=== PATIENT | female | born 1955 | race Caucasian/White ===

== ENCOUNTER 2019-12-26 14:19 | Observation (INO) ==
[2019-12-26 16:57] LABS: Basophils # 0.1 K/mcL (0.0-0.2); Basophils % 0.5 %; Eosinophils # 0.2 K/mcL (0.0-0.6); Eosinophils % 2.1 %; Hematocrit 44.3 % (35.3-44.9); Hemoglobin 14.3 g/dL (11.5-15.4); Immature Granulocytes % 0.5 % (0-4); Lymphocytes # 1.7 K/mcL (0.6-4.6); Lymphocytes % 16.5 %; Mean Corpuscular HGB Conc 32.3 g/dL (31.6-35.5); Mean Corpuscular Hemoglobin 27.7 pg (28.0-33.3); Mean Corpuscular Volume 85.9 fL (83.0-100.0); Mean Platelet Volume 10.5 fL (9.4-12.4); Monocytes # 0.6 K/mcL (0.0-1.3); Monocytes % 5.8 %; Neutrophils # 7.7 K/mcL (1.6-8.9); Platelet Count 254 K/mcL (140-400); Red Blood Count 5.16 M/mcL (3.82-4.97); Red Cell Distribution Width 15.5 % (11.5-14.5); Segmented Neutrophils % 74.6 %; White Blood Count 10.3 K/mcL (4.3-11.1)
[2019-12-26 17:15] LABS: BUN/Creatinine Ratio 15 (6-26); Blood Urea Nitrogen 9 mg/dL (8-23); Calcium 9.3 mg/dL (8.6-10.3); Carbon Dioxide 26 mEq/L (23-29); Chloride 100 mEq/L (98-107); Glucose 276 mg/dL (70-105); Osmolality,Calculated 289 (280-300); Potassium 3.8 mEq/L (3.5-5.1); Sodium 135 mEq/L (136-145); eGFR For African Americans > 60 (> 60); eGFR For Non-African Americans > 60 (> 60)
[2019-12-26 17:21] LABS: Prothrombin Time 11.4 Seconds (9.4-12.1)
[2019-12-26] MEDS ORDERED: Ondansetron 4 MG/2 ML VIAL IVP PRN (17:22)
[2019-12-26] MEDS ORDERED: Naloxone 0.4 MG/ML INJ IVP PRN (17:22)
[2019-12-26 17:24] LABS: Activated Partial Thrombo Time 29.5 Seconds (26.0-36.0)
[2019-12-26] MEDS ORDERED: Dextrose Gel 15 GM/37.5 ML TUBE PO PRN ×2 (17:51)
[2019-12-26] MEDS ORDERED: D5% in Water 1,000 ML IVC PRN (17:51)
[2019-12-26] MEDS ORDERED: *HR* Dextrose 50 % in Water (Vial) 50 ML VIAL IVP PRN (17:51)
[2019-12-26 19:40] LABS: Estimated Average Glucose 258 mg/dl
[2019-12-26] MEDS: *HR* Heparin 5,000 UNIT/ML VIAL SQ SCH (20:34)
[2019-12-26] MEDS: *HR* OxyCODONE/APAP 5/325 TABLET PO PRN (20:38)
[2019-12-26] MEDS: Gabapentin 400 MG CAPSULE PO SCH (22:42)
[2019-12-26] MEDS: Insulin DETEMIR 100 UNIT/ML X5UNITS SQ SCH (22:42)
[2019-12-26] MEDS: Insulin LISPRO 300 UNITS/3 ML VIAL SQ SCH (22:42)
[2019-12-26] MEDS: Melatonin 3 MG TABLET PO SCH (22:42)
[2019-12-26] MEDS: Sennosides/Docusate Sodium TABLET PO SCH (23:30)
[2019-12-26] MEDS ORDERED: *HR* OxyCODONE Immed Rel 5 MG TABLET PO ONE (23:54)
[2019-12-27 05:04] LABS: Basophils # 0.1 K/mcL (0.0-0.2); Basophils % 0.6 %; Eosinophils # 0.3 K/mcL (0.0-0.6); Hemoglobin 13.3 g/dL (11.5-15.4); Immature Granulocytes % 0.3 % (0-4); Lymphocytes # 2.5 K/mcL (0.6-4.6); Lymphocytes % 25.2 %; Mean Corpuscular HGB Conc 31.7 g/dL (31.6-35.5); Mean Corpuscular Hemoglobin 27.7 pg (28.0-33.3); Mean Corpuscular Volume 87.3 fL (83.0-100.0); Mean Platelet Volume 10.7 fL (9.4-12.4); Monocytes # 0.7 K/mcL (0.0-1.3); Monocytes % 7.3 %; Neutrophils # 6.4 K/mcL (1.6-8.9); Platelet Count 268 K/mcL (140-400); Red Blood Count 4.81 M/mcL (3.82-4.97); Red Cell Distribution Width 15.6 % (11.5-14.5); Segmented Neutrophils % 63.6 %
[2019-12-27 05:16] LABS: BUN/Creatinine Ratio 20 (6-26); Blood Urea Nitrogen 12 mg/dL (8-23); Calcium 8.9 mg/dL (8.6-10.3); Carbon Dioxide 25 mEq/L (23-29); Chloride 103 mEq/L (98-107); Glucose 250 mg/dL (70-105); Osmolality,Calculated 292 (280-300); Phosphorous 4.8 mg/dL (2.7-4.5); Potassium 4.3 mEq/L (3.5-5.1); Sodium 137 mEq/L (136-145); eGFR For African Americans > 60 (> 60); eGFR For Non-African Americans > 60 (> 60)
[2019-12-27] MEDS: *HR* Heparin 5,000 UNIT/ML VIAL SQ SCH ×2 (05:27→15:54)
[2019-12-27] MEDS: atenoloL 25 MG TABLET PO SCH (08:58)
[2019-12-27] MEDS: *HR* OxyCODONE/APAP 5/325 TABLET PO PRN ×2 (08:58→17:34)
[2019-12-27] MEDS: Aspirin Enteric Coated 81 MG Tablet PO SCH (08:59)
[2019-12-27] MEDS: Venlafaxine XR (24 HR) 150 MG CAP.ER.24H PO SCH (08:59)
[2019-12-27] MEDS: Sennosides/Docusate Sodium TABLET PO SCH ×2 (08:59→20:49)
[2019-12-27] MEDS: Gabapentin 400 MG CAPSULE PO SCH ×3 (08:59→20:48)
[2019-12-27] MEDS: Insulin LISPRO 300 UNITS/3 ML VIAL SQ SCH ×4 (09:00→20:54)
[2019-12-27] MEDS: Insulin DETEMIR 100 UNIT/ML X5UNITS SQ SCH ×2 (09:03→23:14)
[2019-12-27] MEDS: Melatonin 3 MG TABLET PO SCH (20:48)
[2019-12-28 02:38] LABS: Adenovirus Not Detected (Not Detect); Bordetella Pertussis Not Detected (Not Detect); Chlamydophila pneumoniae Not Detected (Not Detect); Coronavirus 229E Not Detected (Not Detect); Coronavirus HKU1 Not Detected (Not Detect); Coronavirus NL63 Not Detected (Not Detect); Coronavirus OC43 Not Detected (Not Detect); Human Metapneumovirus Not Detected (Not Detect); Human Rhinovirus/Enterovirus Not Detected (Not Detect); Influenza A Subtype 2009 H1 Not Detected (Not Detect); Influenza B Not Detected (Not Detect); Mycoplasma pneumoniae Not Detected (Not Detect); Parainfluenza Virus 1 Not Detected (Not Detect); Parainfluenza Virus 2 Not Detected (Not Detect); Parainfluenza Virus 3 Not Detected (Not Detect); Parainfluenza Virus 4 Not Detected (Not Detect); Respiratory Syncytial Virus Not Detected (Not Detect); SARS-CoV-2 Not Detected (Not Detect)
[2019-12-28 04:42] LABS: Basophils # 0.1 K/mcL (0.0-0.2); Basophils % 0.5 %; Eosinophils # 0.3 K/mcL (0.0-0.6); Hematocrit 43.1 % (35.3-44.9); Hemoglobin 13.3 g/dL (11.5-15.4); Immature Granulocytes % 0.4 % (0-4); Lymphocytes # 2.4 K/mcL (0.6-4.6); Lymphocytes % 22.4 %; Mean Corpuscular HGB Conc 30.9 g/dL (31.6-35.5); Mean Corpuscular Hemoglobin 27.1 pg (28.0-33.3); Mean Corpuscular Volume 87.8 fL (83.0-100.0); Monocytes # 0.8 K/mcL (0.0-1.3); Monocytes % 7.4 %; Neutrophils # 7.1 K/mcL (1.6-8.9); Platelet Count 243 K/mcL (140-400); Red Blood Count 4.91 M/mcL (3.82-4.97); Red Cell Distribution Width 15.7 % (11.5-14.5); Segmented Neutrophils % 66.3 %; White Blood Count 10.7 K/mcL (4.3-11.1)
[2019-12-28 04:56] LABS: BUN/Creatinine Ratio 20 (6-26); Blood Urea Nitrogen 14 mg/dL (8-23); Calcium 8.7 mg/dL (8.6-10.3); Carbon Dioxide 25 mEq/L (23-29); Chloride 100 mEq/L (98-107); Glucose 262 mg/dL (70-105); Magnesium 1.9 mg/dL (1.6-2.6); Osmolality,Calculated 290 (280-300); Phosphorous 4.3 mg/dL (2.7-4.5); Potassium 3.8 mEq/L (3.5-5.1); Sodium 135 mEq/L (136-145); eGFR For African Americans > 60 (> 60); eGFR For Non-African Americans > 60 (> 60)
[2019-12-28] MEDS: *HR* Heparin 5,000 UNIT/ML VIAL SQ SCH (05:54)
[2019-12-28] MEDS: *HR* OxyCODONE/APAP 10/325 TABLET PO PRN ×2 (08:50→13:45)
[2019-12-28] MEDS: Gabapentin 400 MG CAPSULE PO SCH (08:50)
[2019-12-28] MEDS: Aspirin Enteric Coated 81 MG Tablet PO SCH (08:50)
[2019-12-28] MEDS: Venlafaxine XR (24 HR) 150 MG CAP.ER.24H PO SCH (08:50)
[2019-12-28] MEDS: Sennosides/Docusate Sodium TABLET PO SCH (08:51)
[2019-12-28] MEDS: atenoloL 25 MG TABLET PO SCH (08:51)
[2019-12-28] MEDS: Insulin LISPRO 300 UNITS/3 ML VIAL SQ SCH ×2 (08:52→12:14)
[2019-12-28] MEDS: Insulin DETEMIR 100 UNIT/ML X5UNITS SQ SCH ×2 (12:14→20:56)
[2019-12-28] MEDS ORDERED: *HR* FentaNYL (PF) 100 MCG/2 ML VIAL ONE (16:32)
[2019-12-28] MEDS ORDERED: Lidocaine HCL 4 ML Topical Solution (Laryng-O-Jet Kit Sterile Pak) TP ONE (16:32)
[2019-12-28] MEDS ORDERED: Dexamethasone 4 MG/ML VIAL ONE (16:32)
[2019-12-28] MEDS ORDERED: *HR* Propofol 200 MG/20 ML VIAL IVP ONE (16:32)
[2019-12-28] MEDS ORDERED: Lidocaine -MPF 2% 2 ML VIAL ONE (16:32)
[2019-12-28] MEDS ORDERED: Ondansetron 4 MG/2 ML VIAL ONE (16:32)
[2019-12-28] MEDS ORDERED: Ondansetron 4 MG/2 ML VIAL IVP PRN ×2 (16:54→19:46)
[2019-12-28] MEDS ORDERED: *HR* Promethazine 25 MG/ML VIAL IVP PRN (16:54)
[2019-12-28] MEDS ORDERED: *HR* Labetalol 20 MG/4 ML SYRINGE IVP PRN (16:54)
[2019-12-28] MEDS ORDERED: Isovue-300 50ML VIAL ONE (17:25)
[2019-12-28] MEDS ORDERED: Clindamycin 900 MG/50 ML 900 MG/50 ML IV.SOLN IVPB ONE (17:51)
[2019-12-28] MEDS: *HR* HYDROmorphone (PF) 1 MG/ML SYRINGE IVP PRN ×4 (18:36→18:51)
[2019-12-28] MEDS ORDERED: Furosemide 40 MG TABLET PO PRN (19:46)
[2019-12-28] MEDS ORDERED: Ondansetron ODT 4 MG TAB.RAPDIS SL PRN (19:46)
[2019-12-28] MEDS ORDERED: *HR* OxyCODONE Immed Rel 5 MG TABLET PO PRN (19:46)
[2019-12-28] MEDS ORDERED: Ringers Solution, Lactated 1,000 ML IVC SCH (19:46)
[2019-12-28] MEDS ORDERED: *HR* LORazepam 0.5 MG TABLET PO PRN (19:46)
[2019-12-28] MEDS: Dextroamphetamine/Amphetamine [Adderall 30 Mg Tablet] PO SCH (21:14)
[2019-12-29] MEDS: Clindamycin 900 MG/50 ML 900 MG/50 ML IV.SOLN IVPB SCH ×2 (00:16→07:56)
[2019-12-29 02:18] LABS: Basophils % 0.3 %; Eosinophils % 0.1 %; Hematocrit 43.8 % (35.3-44.9); Hemoglobin 13.5 g/dL (11.5-15.4); Immature Granulocytes % 0.5 % (0-4); Lymphocytes # 1.1 K/mcL (0.6-4.6); Lymphocytes % 9.9 %; Mean Corpuscular HGB Conc 30.8 g/dL (31.6-35.5); Mean Corpuscular Hemoglobin 27.8 pg (28.0-33.3); Mean Corpuscular Volume 90.3 fL (83.0-100.0); Mean Platelet Volume 11.2 fL (9.4-12.4); Monocytes # 0.4 K/mcL (0.0-1.3); Monocytes % 3.6 %; Neutrophils # 9.4 K/mcL (1.6-8.9); Platelet Count 227 K/mcL (140-400); Red Blood Count 4.85 M/mcL (3.82-4.97); Red Cell Distribution Width 15.5 % (11.5-14.5); Segmented Neutrophils % 85.6 %; White Blood Count 10.9 K/mcL (4.3-11.1)
[2019-12-29 02:36] LABS: BUN/Creatinine Ratio 27 (6-26); Blood Urea Nitrogen 17 mg/dL (8-23); Calcium 8.4 mg/dL (8.6-10.3); Carbon Dioxide 27 mEq/L (23-29); Chloride 102 mEq/L (98-107); Glucose 302 mg/dL (70-105); Osmolality,Calculated 293 (280-300); Potassium 4.4 mEq/L (3.5-5.1); Sodium 135 mEq/L (136-145); eGFR For African Americans > 60 (> 60); eGFR For Non-African Americans > 60 (> 60)
[2019-12-29 06:47] VITALS: BP 106/68
[2019-12-29] MEDS: Insulin DETEMIR 100 UNIT/ML X5UNITS SQ SCH (07:56)
[2019-12-29] MEDS ORDERED: *HR* Metformin 500 MG TABLET PO SCH (08:00)
[2019-12-29] MEDS ORDERED: Venlafaxine XR (24 HR) 150 MG CAP.ER.24H PO SCH (09:00)
[2019-12-29] MEDS: Dextroamphetamine/Amphetamine [Adderall 30 Mg Tablet] PO SCH (10:20)
== END 2019-12-29 11:50 | disposition home health service (06) ==
LOC: EMEROOARM 14:19 → CDU 14:19 → 3NENU 12-27 17:22
PROVIDERS: ADMIT Pharmacist; ATTEND Pharmacist

== ENCOUNTER 2020-09-27 02:31 | Observation (INO) ==
[2020-09-27 03:07] LABS: Basophils # 0.1 K/mcL (0.0-0.2); Basophils % 0.6 %; Eosinophils # 0.2 K/mcL (0.0-0.6); Eosinophils % 1.9 %; Hemoglobin 13.8 g/dL (11.5-15.4); Immature Granulocytes % 0.4 % (0-4); Lymphocytes # 1.6 K/mcL (0.6-4.6); Lymphocytes % 15.8 %; Mean Corpuscular HGB Conc 31.4 g/dL (31.6-35.5); Mean Corpuscular Hemoglobin 27.7 pg (28.0-33.3); Mean Corpuscular Volume 88.4 fL (83.0-100.0); Mean Platelet Volume 10.6 fL (9.4-12.4); Monocytes # 0.7 K/mcL (0.0-1.3); Monocytes % 7.3 %; Neutrophils # 7.4 K/mcL (1.6-8.9); Platelet Count 215 K/mcL (140-400); Red Blood Count 4.98 M/mcL (3.82-4.97); Red Cell Distribution Width 15.4 % (11.5-14.5)
[2020-09-27 03:31] LABS: BUN/Creatinine Ratio 27 (6-26); Blood Urea Nitrogen 19 mg/dL (8-23); Calcium 9.1 mg/dL (8.6-10.3); Carbon Dioxide 24 mEq/L (23-29); Chloride 104 mEq/L (98-107); Glucose 158 mg/dL (70-105); Osmolality,Calculated 300 (280-300); Potassium 3.3 mEq/L (3.5-5.1); Sodium 142 mEq/L (136-145); eGFR For African Americans > 60 (> 60); eGFR For Non-African Americans > 60 (> 60)
[2020-09-27] MEDS ORDERED: Ondansetron 4 MG/2 ML VIAL IVP ONE ×2 (08:41→11:00)
[2020-09-27 08:46] LABS: Bacteria,Urine Few per hpf (None-Few); Bilirubin,Urine Negative (Negative); Blood,Urine Negative (Negative); Clarity,Urine Clear (Clear); Color,Urine Colorless (Yellow); Glucose,Urine (UA) 500 mg/dL (Normal); Ketones,Urine Negative (Negative); Leukocyte Esterase,Urine Negative (Negative); Nitrite,Urine Negative (Negative); PH,Urine 6.5 pH Units (5.0-8.0); Protein,Urine Negative (Neg-Trace); RBC,Urine 0-3 per hpf (0-3); Specific Gravity,Urine 1.009 (1.010-1.025); Squamous Epithelial Cell,Urine Few per hpf (None-Few); Urobilinogen,Urine Normal (Normal); WBC,Urine 0-3 per hpf (0-3)
[2020-09-27] MEDS ORDERED: *HR* FentaNYL (PF) 100 MCG/2 ML VIAL IVP ONE (08:54)
[2020-09-27] MEDS ORDERED: Potassium Effervescent 25 MEQ TABLET.EFF PO ONE (08:54)
[2020-09-27] MEDS ORDERED: Ondansetron ODT 4 MG TAB.RAPDIS SL PRN (11:03)
[2020-09-27] MEDS ORDERED: Acetaminophen 325 MG TABLET PO PRN (11:03)
[2020-09-27] MEDS ORDERED: *HR* Dextrose 50 % in Water (Vial) 50 ML VIAL IVP PRN (11:05)
[2020-09-27] MEDS ORDERED: Dextrose Gel 15 GM/37.5 ML TUBE PO PRN ×2 (11:05)
[2020-09-27] MEDS ORDERED: D5% in Water 1,000 ML IVC PRN (11:05)
[2020-09-27] MEDS: Insulin LISPRO 300 UNITS/3 ML VIAL SUBQ SCH ×2 (11:52→17:07)
[2020-09-27] MEDS ORDERED: *HR* OxyCODONE Immed Rel 5 MG TABLET PO PRN (14:10)
[2020-09-27] MEDS ORDERED: *HR* LORazepam 0.5 MG TABLET PO PRN (14:11)
[2020-09-27] MEDS: Gabapentin 400 MG CAPSULE PO SCH ×2 (15:09→20:39)
[2020-09-27] MEDS ORDERED: Insulin LISPRO 300 UNITS/3 ML VIAL SUBQ SCH (21:00)
[2020-09-28] MEDS ORDERED: *HR* Enoxaparin 40 MG/0.4 ML SYRINGE SQ SCH (06:00)
[2020-09-28 06:01] LABS: Hematocrit 41.3 % (35.3-44.9); Hemoglobin 13.5 g/dL (11.5-15.4); Mean Corpuscular HGB Conc 32.7 g/dL (31.6-35.5); Mean Corpuscular Hemoglobin 28.6 pg (28.0-33.3); Mean Corpuscular Volume 87.5 fL (83.0-100.0); Mean Platelet Volume 11.1 fL (9.4-12.4); Platelet Count 235 K/mcL (140-400); Red Blood Count 4.72 M/mcL (3.82-4.97); Red Cell Distribution Width 15.7 % (11.5-14.5); White Blood Count 11.1 K/mcL (4.3-11.1)
[2020-09-28 06:19] LABS: BUN/Creatinine Ratio 19 (6-26); Blood Urea Nitrogen 18 mg/dL (8-23); Calcium 9.5 mg/dL (8.6-10.3); Carbon Dioxide 28 mEq/L (23-29); Chloride 103 mEq/L (98-107); Glucose 194 mg/dL (70-105); Osmolality,Calculated 291 (280-300); Potassium 4.1 mEq/L (3.5-5.1); Sodium 137 mEq/L (136-145); eGFR For African Americans > 60 (> 60); eGFR For Non-African Americans 59 (> 60)
[2020-09-28] MEDS ORDERED: Aspirin Enteric Coated 81 MG Tablet PO SCH (09:00)
[2020-09-28] MEDS ORDERED: atenoloL 25 MG TABLET PO SCH (09:00)
[2020-09-28] MEDS ORDERED: Venlafaxine XR (24 HR) 150 MG CAP.ER.24H PO SCH (09:00)
[2020-09-28] MEDS ORDERED: OLANZapine 10 MG TAB.RAPDIS PO SCH (09:00)
[2020-09-28] MEDS: Insulin LISPRO 300 UNITS/3 ML VIAL SUBQ SCH ×2 (10:10→12:55)
[2020-09-28] MEDS: Gabapentin 400 MG CAPSULE PO SCH ×2 (10:11→16:03)
[2020-09-28 11:00] VITALS: BP 111/72
== END 2020-09-28 16:18 | disposition home health service (06) ==
LOC: 3ANU 02:31 → EMEROOARM 02:31 → SUATTDRO 09:15 → 3ANU 10:29
PROVIDERS: ADMIT Internal Medicine; ATTEND Pharmacist

== ENCOUNTER 2021-05-16 14:37 | Inpatient (IN) ==
[2021-05-16 15:45] LABS: Basophils # 0.1 K/mcL (0.0-0.2); Basophils % 0.6 %; Eosinophils # 0.1 K/mcL (0.0-0.6); Eosinophils % 1.3 %; Hematocrit 42.9 % (35.3-44.9); Hemoglobin 13.9 g/dL (11.5-15.4); Immature Granulocytes % 0.4 % (0-4); Lymphocytes # 1.4 K/mcL (0.6-4.6); Lymphocytes % 18.2 %; Mean Corpuscular HGB Conc 32.4 g/dL (31.6-35.5); Mean Corpuscular Hemoglobin 28.8 pg (28.0-33.3); Mean Platelet Volume 10.4 fL (9.4-12.4); Monocytes # 0.5 K/mcL (0.0-1.3); Monocytes % 6.5 %; Neutrophils # 5.7 K/mcL (1.6-8.9); Platelet Count 246 K/mcL (140-400); Red Blood Count 4.82 M/mcL (3.82-4.97); White Blood Count 7.9 K/mcL (4.3-11.1)
[2021-05-16 16:05] LABS: Acetaminophen < 10 mcg/mL (10-20); Alanine Aminotransferase 20 Units/L (7-52); Albumin 3.6 g/dL (3.5-5.7); Albumin/Globulin Ratio 1.3 (1.1-2.2); Alkaline Phosphatase 114 Units/L (34-104); Aspartate Amino Transferase 14 Units/L (13-39); BUN/Creatinine Ratio 17 (6-26); Bilirubin,Indirect 0.5 mg/dL (0.0-1.0); Bilirubin,Total 0.5 mg/dL (0.3-1.0); Blood Urea Nitrogen 13 mg/dL (8-23); Carbon Dioxide 27 mEq/L (23-29); Chloride 102 mEq/L (98-107); Chol/HDL Ratio 6.3 (0-4.9); Cholesterol 258 mg/dL (< 200); Ethanol < 10 mg/dL (Less than 10); Globulin 2.7 g/dL (2.4-3.5); Glucose 248 mg/dL (70-105); HDL Cholesterol 41 mg/dL (40-59); Osmolality,Calculated 292 (280-300); Potassium 4.1 mEq/L (3.5-5.1); Salicylate < 2.5 mg/dL (15.0-30.0); Sodium 137 mEq/L (136-145); Total Protein 6.3 g/dL (6.4-8.9); Triglycerides 502 mg/dL (< 150); eGFR For African Americans > 60 (> 60); eGFR For Non-African Americans > 60 (> 60)
[2021-05-16 16:11] LABS: Bilirubin,Urine Negative (Negative); Blood,Urine Negative (Negative); Clarity,Urine Clear (Clear); Color,Urine Light-Yellow (Yellow); Glucose,Urine (UA) >=1000 mg/dL (Normal); Ketones,Urine Negative (Negative); Leukocyte Esterase,Urine Negative (Negative); Mucus,Urine Few per lpf (None-Few); Nitrite,Urine Negative (Negative); Protein,Urine Trace mg/dL (Neg-Trace); RBC,Urine 0-3 per hpf (0-3); Specific Gravity,Urine > 1.030 (1.010-1.025); Squamous Epithelial Cell,Urine Few per hpf (None-Few); Urobilinogen,Urine Normal (Normal); WBC,Urine 0-3 per hpf (0-3)
[2021-05-16 16:15] LABS: Amphetamine Screen,Urine Negative ng/mL (Cutoff=1000); Barbiturate Screen,Urine Negative ng/mL (Cutoff=200); Benzodiazepines Screen,Urine Negative ng/mL (Cutoff=200); Cannabinoid Screen,Urine Negative ng/mL (Cutoff = 50); Cocaine Screen,Urine Negative ng/mL (Cutoff= 300); Opiate Screen,Urine Positive ng/mL (Cutoff=300); Phencyclidine Screen,Urine Negative ng/mL (Cutoff=25)
[2021-05-16 16:16] LABS: Thyroid Stimulating Hormone 1.805 mcIU/mL (0.340-5.600)
[2021-05-16 17:36] LABS: Estimated Average Glucose 303 mg/dl; Hemoglobin A1C 12.2 %
[2021-05-16] MEDS ORDERED: Ondansetron ODT 4 MG TAB.RAPDIS SL ONE (18:30)
[2021-05-16 19:56] LABS: Influenza A PCR Negative (Negative); Influenza B PCR Negative (Negative); Resp. Syncytial Virus PCR Negative (Negative)
[2021-05-16 20:31] LABS: SARS-CoV-2 by PCR (In House) Negative (Negative)
[2021-05-16] MEDS ORDERED: traZODone 50 MG TABLET PO PRN (20:37)
[2021-05-16] MEDS ORDERED: hydrOXYzine pamoate 25 MG CAPSULE PO PRN (20:37)
[2021-05-16] MEDS ORDERED: Haloperidol Lactate 5 MG/ML VIAL IM PRN (20:37)
[2021-05-16] MEDS ORDERED: *HR* LORazepam 1 MG TABLET PO PRN (20:37)
[2021-05-16] MEDS ORDERED: *HR* LORazepam 2 MG/ML VIAL IM PRN (20:37)
[2021-05-16] MEDS ORDERED: haloperidoL 5 MG TABLET PO PRN (20:37)
[2021-05-16] MEDS ORDERED: Insulin Regular, Human 100 UNIT/ML SUBQ ONE (21:16)
[2021-05-16] MEDS ORDERED: Dextrose Gel 15 GM/37.5 ML TUBE PO PRN ×2 (21:20)
[2021-05-16] MEDS: *HR* LORazepam 0.5 MG TABLET PO PRN (23:28)
[2021-05-17] MEDS: Insulin LISPRO 300 UNITS/3 ML VIAL SUBQ SCH ×4 (09:02→21:33)
[2021-05-17] MEDS: Gabapentin 400 MG CAPSULE PO SCH ×3 (09:05→21:23)
[2021-05-17] MEDS: BuPROPion XL (24 HR) 150 MG TABLET PO SCH (12:46)
[2021-05-17] MEDS: *HR* OxyCODONE/APAP 10/325 TABLET PO PRN (14:50)
[2021-05-17] MEDS: *HR* LORazepam 0.5 MG TABLET PO PRN (21:23)
[2021-05-18] MEDS: Insulin LISPRO 300 UNITS/3 ML VIAL SUBQ SCH ×4 (08:19→22:08)
[2021-05-18] MEDS: *HR* OxyCODONE/APAP 10/325 TABLET PO PRN ×2 (09:38→22:12)
[2021-05-18] MEDS: Gabapentin 400 MG CAPSULE PO SCH ×3 (09:38→22:07)
[2021-05-18] MEDS: BuPROPion XL (24 HR) 150 MG TABLET PO SCH (09:38)
[2021-05-18] MEDS: *HR* LORazepam 0.5 MG TABLET PO PRN (22:07)
[2021-05-19] MEDS: Insulin LISPRO 300 UNITS/3 ML VIAL SUBQ SCH ×5 (09:28→20:32)
[2021-05-19] MEDS: Gabapentin 400 MG CAPSULE PO SCH ×3 (09:31→20:32)
[2021-05-19] MEDS: BuPROPion XL (24 HR) 150 MG TABLET PO SCH (09:32)
[2021-05-19] MEDS: *HR* OxyCODONE/APAP 10/325 TABLET PO PRN (09:56)
[2021-05-19] MEDS ORDERED: Insulin DETEMIR 100 UNIT/ML X5UNITS SUBQ ONE (10:42)
[2021-05-19] MEDS: Aspirin Enteric Coated 81 MG Tablet PO SCH (11:34)
[2021-05-19] MEDS: Benzocaine 20% 12 APPL GEL..GRAM. TP PRN ×2 (13:49→21:30)
[2021-05-19] MEDS ORDERED: Insulin DETEMIR 100 UNIT/ML X5UNITS SUBQ SCH ×2 (21:00)
[2021-05-20] MEDS: *HR* OxyCODONE/APAP 10/325 TABLET PO PRN (07:37)
[2021-05-20] MEDS: Gabapentin 400 MG CAPSULE PO SCH ×3 (08:24→20:51)
[2021-05-20] MEDS: Aspirin Enteric Coated 81 MG Tablet PO SCH (08:25)
[2021-05-20] MEDS: BuPROPion XL (24 HR) 150 MG TABLET PO SCH (08:25)
[2021-05-20] MEDS ORDERED: Insulin DETEMIR 100 UNIT/ML X5UNITS SUBQ SCH ×3 (09:00→21:00)
[2021-05-20] MEDS: Insulin LISPRO 300 UNITS/3 ML VIAL SUBQ SCH ×7 (09:40→20:50)
[2021-05-20] MEDS: Benzocaine 20% 12 APPL GEL..GRAM. TP PRN (18:15)
[2021-05-20] MEDS: *HR* LORazepam 0.5 MG TABLET PO PRN (20:51)
[2021-05-20] MEDS: *HR* OxyCODONE/APAP 10/325 TABLET PO SCH (20:51)
[2021-05-21] MEDS: Insulin LISPRO 300 UNITS/3 ML VIAL SUBQ SCH ×6 (08:27→16:53)
[2021-05-21] MEDS: Aspirin Enteric Coated 81 MG Tablet PO SCH (09:07)
[2021-05-21] MEDS: *HR* OxyCODONE/APAP 10/325 TABLET PO SCH (09:07)
[2021-05-21] MEDS: BuPROPion XL (24 HR) 150 MG TABLET PO SCH (09:07)
[2021-05-21] MEDS: Gabapentin 400 MG CAPSULE PO SCH ×2 (09:08→15:40)
[2021-05-21 09:44] VITALS: BP 117/68; PULSE 76; TEMP 97.8; O2SAT 97
== END 2021-05-21 18:08 | disposition home or self-care (01) | DRG 885 ==
LOC: EMEROOARM 14:37 → SUATTDRO 21:46 → 1ANU 21:46
PROVIDERS: ADMIT Psychiatry & Neurology Psychiatry; ATTEND Internal Medicine